=== PATIENT | male | born 1985 | race African-American/Black ===

== ENCOUNTER 2018-12-03 14:04 | Emergency (ER) | payer SELFPAY ==
[~2018-12-03] VITALS: Ht 172.7 cm; Wt 127.0 kg
[2018-12-03 14:13] VITALS: BP 127/62
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
[2018-12-03 14:57] VITALS: BP 122/82
--- NOTE | 2018-12-03 14:57 | NUR ---
Patient discharged with v/s stable. Written and verbal after care instructions given and explained. Patient verbalized understanding. Ambulatory with steady gait. All questions addressed prior to discharge. Advised to follow up with PMD.
== END 2018-12-03 14:57 | disposition home or self-care (01) ==
LOC: MED 14:04
DX: S80.811A Abrasion, right lower leg, initial encounter (principal); V43.52XA Car driver injured in collision with other type car in traffic accident, initial encounter; Y93.89 Activity, other specified; Y92.411 Interstate highway as the place of occurrence of the external cause; Y99.8 Other external cause status
CPT/HCPCS: 99283